=== PATIENT | female | born 1995 | race Caucasian/White ===

== ENCOUNTER 2017-10-24 16:23 | Emergency (ER) | payer BC ==
[2017-10-24 16:55] VITALS: BP 127/78
--- NOTE | 2017-10-24 17:46 | UC ---
Tab Pineda Nikita, scribed for Henrry Stone MD on 10/24/17 at 1705 . Respiratory Complaint HPI - HPI Summary HPI Summary: This patient is a 22 year old F presenting to [facility] with a chief complaint of cough since 3 days ago and R ear pain since 2 days ago. The cough is described as intermittent and is much better now. The patient rates the pain 4/10 in severity. Symptoms aggravated by nothing. Symptoms alleviated by nothing. Patient reports last week she had a cold with sinusitis. Patient denies fever, chills, sinus pain, and sore throat. - History of Current Complaint Chief Complaint: UCRespiratory Stated Complaint: EAR PAIN,COUGH Time Seen by Provider: 10/24/17 16:24 Hx Obtained From: Patient Hx Last Menstrual Period: IUD, 1 yr ago Onset/Duration: Sudden Onset, Lasting Days, Still Present Timing: Constant Severity Initially: Moderate Severity Currently: Moderate Pain Intensity: 4 Pain Scale Used: 0-10 Numeric Aggravating Factors: Nothing Alleviating Factors: Nothing Associated Signs And Symptoms: Negative: Fever - Patient reports last week she had a cold with sinusitis. Patient denies fever, chills, sinus pain, and sore throat. - Allergies/Home Medications Allergies/Adverse Reactions: Allergies Allergy/AdvReac Type Severity Reaction Status Date / Time ciprofloxacin [From Cipro] Allergy Hives Verified 10/24/17 16:56 PMH/Surg Hx/FS Hx/Imm Hx Endocrine History: Other Other Endocrine History: No DM Cardiovascular History: Other Other Cardiovascular History: No CAD, HTN - Surgical History Surgical History: Yes [facility] - Family History Known Family History: Positive: Diabetes - Social History Alcohol Use: None Substance Use Type: None Smoking Status (MU): Never Smoked Tobacco Review of Systems Constitutional: Other - denies fever and chills ENT: Other - R ear pain; denies sinus pain and sore throat Respiratory: Cough - intermittent and is much better now, Other - last week she had a cold with sinusitis All Other Systems Reviewed And Are Negative: Yes Physical Exam - Summary Physical Exam Summary: VITAL SIGNS: Reviewed. GENERAL: ~Patient is a well-developed and nourished FEMALE who is lying comfortable in the stretcher. ~Patient is not in any acute respiratory distress. HEAD AND FACE: Normocephalic EYES: PERRLA, EOMI x 2. EARS: Hearing grossly intact. R tympanic membrane is red and bulging. Ear canal has no discharge. MOUTH: Oropharynx within normal limits. NECK: Supple, trachea is midline, no adenopathy, no JVD, no carotid bruit. CHEST: Symmetric, no tenderness at palpation LUNGS: Clear to auscultation bilaterally. No wheezing or crackles. CVS: Regular rate and rhythm, S1 and S2 present, no murmurs or gallops appreciated. ABDOMEN: Soft, non-tender. Bowel sounds are normal. No abdominal abnormal pulsations. EXTREMITIES: Full ROM in all major joints, no edema, no cyanosis or clubbing. NEURO: Alert and oriented x 3. No acute neurological deficits. Speech is normal and follows commands. SKIN: Dry and warm Triage Information Reviewed: Yes Vital Signs: Initial Vital Signs Temp 98.7 F 10/24/17 16:53 Pulse 86 10/24/17 16:53 Resp 18 10/24/17 16:53 BP 127/78 10/24/17 16:53 Pulse Ox 100 10/24/17 16:53 Vital Signs Reviewed: Yes Diagnostic Evaluation - Laboratory O2 Sat by Pulse Oximetry: 100 Respiratory Course/Dx - Course Course Of Treatment: Patient was found to have OM. She was given a prescription for Aughmentin. The pt is hemodynamically stable, alert and oriented x3. I discussed all the findings and test results with the patient. Patient was instructed to return to the urgent care or go to ER immediately if any of the symptoms return or worsens. Plan of care was discussed with the patient, and patient understands and agrees. All questions were answered to patient satisfaction. There were no further complaints or concerns. - Differential Dx/Diagnosis Differential Diagnosis/HQI/PQRI: Laryngitis, Sinusitis Provider Diagnoses: Otitis media Discharge - Sign-Out/Discharge Documenting (check all that apply): Discharge - Discharge Plan Condition: Stable Disposition: HOME Prescriptions: Amoxicillin/Clavulanate TAB* [Augmentin TAB 875*] 875 mg PO BID #20 tab Patient Education Materials: Ear Infection (ED) Referrals: Sugar Grider [Primary Care Provider] - Additional Instructions: Take medications as instructed Increase your fluid intake Return to the if symptoms worsen - Billing Disposition and Condition Condition: STABLE Disposition: HOME The documentation as recorded by the Tab mari Nikita accurately reflects the service I personally performed and the decisions made by me, Henrry Stone MD.
== END 2017-10-24 17:15 | disposition home or self-care (01) ==
LOC: UCEAST 16:23
DX: H66.91 Otitis media, unspecified, right ear (principal); R05 Cough; Z88.1 Allergy status to other antibiotic agents
CPT/HCPCS: 99202; G0463